=== PATIENT | male | born 1940 | race Caucasian/White ===

== ENCOUNTER 2016-07-08 06:52 | Day surgery (SDC) | payer OTHER ==
--- NOTE | ~2016-07-08 | EGD ---
EGD REPORT [facility] [address] [address] NAME: KULDEEP SANTANA : [birth year] STATUS : [facility] PAT#: [id number] AGE: 76 ADM/REG DATE : 07/08/16 MR#: [id number] REPORT SERV DATE: 07/08/16 DICTATED BY: CAMRON RETANA DATE: 07/08/16 REPORT STATUS : Draft TRANSCRIBED BY: [employer] DATE: 07/08/16 [facility] Patient Name: Kuldeep Santana Date of : 1940 Attending MD: CAMRON RETANA MD Procedure Date No Time: 07/08/2016 Procedure: Upper GI endoscopy Indications: Pyloric stenosis Referring MD: KULDEEP CARVALHO MD Medicines: Sedation Required Anesthesia Staff Assistance Complications: No immediate complications. Estimated blood loss: Minimal. Procedure: Pre-Anesthesia Assessment: - ASA Grade Assessment: III - A patient with severe systemic disease. After obtaining informed consent, the endoscope was passed under direct vision. Throughout the procedure, the patient's blood pressure, pulse, and oxygen saturations were monitored continuously. The GIF [id number] [id number] was introduced through the mouth, and advanced to the second part of duodenum. The upper GI endoscopy was technically difficult and complex due to abnormal anatomy. The patient tolerated the procedure well. Findings: LA Grade B (one or more mucosal breaks greater than 5 mm, not extending between the tops of two mucosal folds) esophagitis with no bleeding was found in the middle third of the esophagus. An esophago-gastric anastomosis was found in the lower third of the esophagus. Excessive fluid was found in the stomach. Fluid aspiration was performed. A benign-appearing, intrinsic severe stenosis was found at the pylorus. This was traversed. A TTS dilator was passed through the scope. Dilation with a 12-13.5-15 mm pyloric balloon dilator was performed. Estimated blood loss was minimal. The examined duodenum was normal. One non-bleeding cratered gastric ulcer with no stigmata of bleeding was found at the pylorus. The lesion was 4 mm in largest dimension. Impression: - LA Grade B reflux esophagitis. - An esophago-gastric anastomosis was found. - Excessive gastric fluid. Fluid aspiration performed. - Gastric stenosis was found at the pylorus. Dilated. - Normal examined duodenum. - Gastric ulcer with clean base. EGD REPORT [address] [address] NAME: KULDEEP SANTANA : [birth year] STATUS : REG [facility]#: [id number] AGE: 76 ADM/REG DATE : 07/08/16 MR#: [id number] REPORT SERV DATE: 07/08/16 DICTATED BY: CAMRON RETANA DATE: 07/08/16 REPORT STATUS : Draft TRANSCRIBED BY: [employer] DATE: 07/08/16 Recommendation: - Discharge patient to home. - Clear liquid diet today. - Do an upper GI series today. - Continue present medications. 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 All rights reserved. The codes documented in this report are preliminary and upon intermodal dispatcher review may be revised to meet current compliance requirements. CAMRON RETANA MD 07/08/2016 9:19 AM This report has been signed electronically. Number of Addenda: 0 Note Initiated On: 07/08/2016 8:35 AM Scope Withdrawal Time 0 hours 0 minutes 0 seconds [address] [id number]
[~2016-07-08 06:52] MED LIST: ASAB PO; CIP5 PO; FLOMAX4 PO; LORTAB 5 PO; NEXIUM40 PO; PRILO PO; TRAZ50 PO; VASOTEC10 PO; VASOTEC20 MG PO; ZANTAC150 MG PO; [UNRECOGNIZED DRUG - OTHER]
== END 2016-07-08 23:59 | disposition home or self-care (01) ==
LOC: DMU 06:52
PROVIDERS: Internal Medicine Gastroenterology
PROC: 0D7 Gastrointestinal System, Dilation (ICD-10-PCS; principal; 2016-07-08 08:00)
DX: K31.1 Adult hypertrophic pyloric stenosis (principal); K21.0 Gastro-esophageal reflux disease with esophagitis; K25.9 Gastric ulcer, unspecified as acute or chronic, without hemorrhage or perforation; I10 Essential (primary) hypertension; N40.0 Benign prostatic hyperplasia without lower urinary tract symptoms; Z85.01 Personal history of malignant neoplasm of esophagus; R13.10 Dysphagia, unspecified; Z79.82 Long term (current) use of aspirin; Z98.890 Other specified postprocedural states; Z98.41 Cataract extraction status, right eye; Z98.42 Cataract extraction status, left eye; Z96.1 Presence of intraocular lens; Z88.5 Allergy status to narcotic agent; Z79.899 Other long term (current) drug therapy
CPT/HCPCS: 74240; C1726